=== PATIENT | female | born 1985 | race Caucasian/White ===

== ENCOUNTER 2020-11-28 18:16 | Emergency (ER) | payer OTHER ==
[2020-11-28 19:39] LABS: BASOPHIL 0.4 % (0-2); EOSINOPHIL 1.7 % (0-5); HGB 13.3 g/dl (12.5-16.0); LYMPHOCYTE 28.1 % (15-48); MCH 30.3 pg (25.0-31.0); MCHC 32.4 g/dL (32.0-36.0); MCV 93.4 fL (78.0-100.0); MPV 10.4 fL (6.0-9.5); NEUTROPHIL 63.3 % (41-80); NRBC 0; PLT 304 K/uL (150-400); RBC 4.39 M/uL (4.20-5.40); RDW 12.8 % (11.5-14.0); WBC 12.4 K/uL (4.0-10.5)
[2020-11-28 19:48] LABS: ALBUMIN 3.2 g/dL (3.4-5.0); BILIRUBIN - TOTAL 0.3 mg/dL (0.2-1.0); C-REACTIVE PROTEIN 1.5 mg/dL (<=0.90); CREATININE 0.6 mg/dL (0.51-0.95); GLOBULIN (CALCULATION) 3.7 g/dL; POTASSIUM 3.7 mmol/L (3.5-5.1); TOTAL PROTEIN 6.9 g/dL (6.4-8.2)
[2020-11-28 19:53] LABS: LACTIC ACID 1.2 mmol/L (0.4-1.9)
== END 2020-11-28 23:01 | disposition home or self-care (01) ==
LOC: FER 18:16
PROVIDERS: Emergency Medicine Emergency Medical Services
DX: R51.9 Headache, unspecified (principal); R55 Syncope and collapse; I10 Essential (primary) hypertension; R11.2 Nausea with vomiting, unspecified; M54.2 Cervicalgia; Z86.16 Personal history of COVID-19; Z88.5 Allergy status to narcotic agent; Z79.899 Other long term (current) drug therapy
CPT/HCPCS: 36415; 70450; 71045; 80053; 82550; 83605; 84484; 85025; 86140; J0780; J1100; J1200; J1885; J3360; J7030